=== PATIENT | female | born 1975 | race African-American/Black ===

== ENCOUNTER → 2023-10-02 15:53 | Outpatient (REF) | payer OTHER, SELFPAY | LOC: RAD 15:53 | PROVIDERS: ATTENDING PHYSICIAN Obstetrics & Gynecology; FAMILY PHYSICIAN Physician Assistant Medical | DX: N92.0 Excessive and frequent menstruation with regular cycle (principal); D25.0 Submucous leiomyoma of uterus | CPT/HCPCS: 76830; 76856 ==

== ENCOUNTER 2023-11-08 06:14 | Day surgery (SDC) | payer OTHER, SELFPAY ==
[2023-10-31 08:07] VITALS: BMI 22.7
[2023-10-31 09:41] LABS: % Basophils 1.7 % (0-2); % Eosinophils 2.7 % (0-6); % Immature Granulocytes 0.2 % (0-0.5); % Lymphocytes 32.4 % (20.5-51.1); % Monocytes 11.9 % (1.7-9.3); % Neutrophils 51.1 % (42.2-75.2); Absolute Basophils 0.1 10^3/uL (0-0.2); Absolute Eosinophils 0.1 10^3/uL (0-0.7); Absolute Lymphocytes 1.3 10^3/uL (1.2-3.4); Absolute Monocytes 0.5 10^3/uL (0.1-0.6); Absolute Neutrophils 2.1 10^3/uL (1.4-6.5); Hematocrit 39.2 % (37.0-47.0); Hemoglobin 12.4 g/dL (12.0-16.0); Mean Corp Hgb Conc. 31.6 g/dL (33.0-37.0); Mean Corpuscular Hgb 26.1 pg (27.0-31.0); Mean Corpuscular Volume 82.5 fL (81.0-99.0); Mean Platelet Volume 10.9 fL (7.4-10.4); Nucleated Red Blood Cells % 0 %; Platelet Count 287 10^3/uL (130-400); Red Blood Cell Count 4.75 10^6/uL (4.20-5.40); Red Cell Dist. Width 14.9 % (11.5-14.5)
[2023-10-31 10:00] LABS: Blood Urea Nitrogen 14 mg/dl (7-17); Carbon Dioxide 24 mmol/L (22-30); Chloride 105 mmol/L (98-107); Estimated Creatinine Clearance 93 ml/min; Glucose 67 mg/dl (70-99); Potassium 3.9 mmol/L (3.5-5.1); Sodium 140 mmol/L (135-145); eGFR > 60.00
[2023-10-31 10:04] LABS: Beta HCG Quantitative < 2.39 mIU/ml
[2023-11-08 07:54] VITALS: BMI 22.7
[2023-11-08 08:12] VITALS: BP 124/88
[2023-11-08] MEDS: NORMOSOL-R 1000 IV (08:25)
--- NOTE | 2023-11-08 08:25 | W.SUR.PREOP ---
Pre-Operative Surgical Note
-
I have examined this patient prior to the performance of the scheduled procedure.
The patient's condition is unchanged from the time of the current History and
Physical and the patient is able to undergo the scheduled procedure.
[2023-11-08 09:08] VITALS: BP 110/84
[2023-11-08 09:15] VITALS: BP 115/86
--- NOTE | 2023-11-08 09:28 | W.IMMPOSTOP ---
Surgical Immed Post Op Note
-
Primary Surgeon: Manju Alvarado DO
Assisting Surgeon: same
Pre-op Diagnosis: Menorrhagia,fibroids
Post-op Diagnosis: same
Procedure Performed: Hysteroscopy D&C
Anesthesia Type: MAC IV sedation Dr. Guerrero
Specimen / Cultures: 1. endocervical curettings 2. endometrial curettings
Estimated Blood Loss: 2ml
Complications: none
Operative Findings: Uterus enlarged, fibroid uterus. Endometrial cavity appears normal, bilateral tubal ostia seen. No evidence of polyp or tumor.
Fluid deficit: 45ml NSS
Counts correct times 2.
Stable to recovery.
[2023-11-08 09:30] VITALS: BP 120/87
[2023-11-08] MEDS: TYLENOL 650 MG PO (09:40)
[2023-11-08 09:45] VITALS: BP 121/90
[2023-11-08 10:00] VITALS: BP 123/91
== END 2023-11-08 10:20 | disposition home or self-care (01) ==
LOC: SDS 06:14
PROVIDERS: ATTENDING PHYSICIAN Obstetrics & Gynecology; FAMILY PHYSICIAN Physician Assistant Medical
DX: D25.9 Leiomyoma of uterus, unspecified (principal); N92.0 Excessive and frequent menstruation with regular cycle; N85.00 Endometrial hyperplasia, unspecified
CPT/HCPCS: 58558; 88305; 36415; 80048; 84702; 85025; 86850; 86900; 86901

== ENCOUNTER 2023-12-10 06:26 | Day surgery (SDC) | payer OTHER, SELFPAY ==
[2023-11-28 08:50] VITALS: BMI 23.1
[2023-11-28 10:17] LABS: % Basophils 1.1 % (0-2); % Eosinophils 2.9 % (0-6); % Immature Granulocytes 0.3 % (0-0.5); % Lymphocytes 37.9 % (20.5-51.1); % Monocytes 9.9 % (1.7-9.3); % Neutrophils 47.9 % (42.2-75.2); Absolute Eosinophils 0.1 10^3/uL (0-0.7); Absolute Lymphocytes 1.4 10^3/uL (1.2-3.4); Absolute Monocytes 0.4 10^3/uL (0.1-0.6); Absolute Neutrophils 1.8 10^3/uL (1.4-6.5); Hematocrit 37.1 % (37.0-47.0); Mean Corp Hgb Conc. 32.3 g/dL (33.0-37.0); Mean Corpuscular Hgb 25.7 pg (27.0-31.0); Mean Corpuscular Volume 79.4 fL (81.0-99.0); Mean Platelet Volume 10.7 fL (7.4-10.4); Nucleated Red Blood Cells % 0 %; Platelet Count 327 10^3/uL (130-400); Red Blood Cell Count 4.67 10^6/uL (4.20-5.40); Red Cell Dist. Width 16.1 % (11.5-14.5); White Blood Cell Count 3.8 10^3/uL (4.8-10.8)
[2023-11-28 10:43] LABS: Blood Urea Nitrogen 8 mg/dl (7-17); Calcium 9.6 mg/dl (8.4-10.2); Carbon Dioxide 25 mmol/L (22-30); Chloride 106 mmol/L (98-107); Estimated Creatinine Clearance 102 ml/min; Glucose 73 mg/dl (70-99); Potassium 4.2 mmol/L (3.5-5.1); Sodium 139 mmol/L (135-145); eGFR > 60.00
[2023-12-10] VITALS (12 sets, daily range): BP systolic 127–150; BP diastolic 89–112; BMI 23.1
[2023-12-10] MEDS: HEPARIN 5000 UNITS SC (12:52)
[2023-12-10] MEDS: NORMOSOL-R 1000 IV ×2 (12:52→19:00)
[2023-12-10 13:23] LABS: HCG, Serum Qualitative Screen Negative
--- NOTE | 2023-12-10 16:49 | W.SUR.PREOP ---
Pre-Operative Surgical Note
-
I have examined this patient prior to the performance of the scheduled procedure.
The patient's condition is unchanged from the time of the current History and
Physical and the patient is able to undergo the scheduled procedure.
Case delayed due to preceding cases today. Pt declined rescheduling.
No changes to H&P.
Again reviewed plan to complete surgery robotic laparoscopically but pt aware of possible risk
for minilap or laparotomy due to uterine size.
--- NOTE | 2023-12-10 19:00 | W.IMMPOSTOP ---
Surgical Immed Post Op Note
-
Primary Surgeon: Manju Alvarado DO
Flat Knitter Helper: WILMER Cruz
Pre-op Diagnosis: Uterine leiomyomata, pelvic pain, menorrhagia
Post-op Diagnosis: same; abdominal omental adhesions
Procedure Performed: Robotic total laparoscopic hysterectomy bilateral salpingectomy, lysis adhesions
Anesthesia Type: general ET Dr. Perrin
Specimen / Cultures: uterus, cervix, fallopian tubes, left paratubal cysts
Estimated Blood Loss: 10ml
Urine output: 200ml clear yellow
Complications: none
Operative Findings: Enlarged uterus approx 14 cm length, with 6cm left anterior intramural fibroid. Normal appearing tubes and ovaries
bilaterally. Left paratubal cysts. Normal appearing appendix. Adhesions of omentum and filmy adhesions along anterior abdominal wall extending from just below umbilicus to level of
pelvic brim.
Counts correct times 2.
Stable to recovery.
[2023-12-10] MEDS: DEMEROL 12.5 MG IV ×2 (19:17→19:30)
[2023-12-10] MEDS: TORADOL 15 MG IV (19:43)
[2023-12-10] MEDS: DILAUDID 0.5 MG IV (19:50)
[2023-12-10 20:02] LABS: Hematocrit 33.1 % (37.0-47.0); Hemoglobin 10.9 g/dL (12.0-16.0)
[2023-12-10 20:15] LABS: Blood Urea Nitrogen 8 mg/dl (7-17); Calcium 8.6 mg/dl (8.4-10.2); Carbon Dioxide 22 mmol/L (22-30); Chloride 104 mmol/L (98-107); Estimated Creatinine Clearance 102 ml/min; Glucose 110 mg/dl (70-99); Potassium 3.9 mmol/L (3.5-5.1); Sodium 136 mmol/L (135-145); eGFR > 60.00
--- NOTE | 2023-12-10 20:30 | PTCARENOTE ---
Pt arrived to 2S via bed at 2029. Pt AAOX3. 4 lap sites OA with glue. Pt complains of 8/10 pain (see mar). IVF infusing at 125 ml/hr. full head to toe assessment complete. Pt oriented to room and call sam. bed in lowest position and locked.
[2023-12-10] MEDS: MORPHINE SULFATE 2 MG IV (21:33)
[2023-12-10] MEDS: ZOFRAN 4 MG IV (21:40)
[2023-12-11] MEDS: SEROQUEL 100 MG PO (00:08)
[2023-12-11] MEDS: COLACE 100 MG PO ×2 (00:08→09:19)
[2023-12-11] MEDS: MYLICON 80 MG PO ×2 (00:09→09:24)
[2023-12-11] MEDS: ROXICODONE 5 MG PO (00:09)
[2023-12-11] MEDS: TORADOL 15 MG IV ×3 (01:14→13:06)
[2023-12-11 03:06] VITALS: BP 132/92
[2023-12-11] MEDS: NORMOSOL-R 1000 IV (04:13)
[2023-12-11] MEDS: MORPHINE SULFATE 2 MG IV (04:23)
[2023-12-11] MEDS: ZOFRAN 4 MG IV (04:23)
--- NOTE | 2023-12-11 07:06 | W.PN.OBG.DWH ---
Today's Communication / Plan
-
Regular diet this am
OOB-encourage
DC home today
Assessment/Plan
-
A/P:POD#1 s/p RA TLH b/l salpingectomy
Feeling well
Change to PO pain meds.
Reg diet this am
Anticipate dc today
OOB
Reviewed dc instructions, restrictions and follow up
Subjective Data
-
POD#1 Pain mgmt imporved. Had some nausea relieved with meds. Not much appetite yet.
voiding without difficulty-emptied well on 2nd void.
feels able to go home today
Denies bleeding
Objective Data
-
Vital Signs
Temp Pulse Resp BP Pulse Ox
98.0 F 86 18 132/92 98
12/11/23 03:06 12/11/23 03:06 12/11/23 03:06 12/11/23 03:06 12/11/23 04:46
VSS afeb
cor:reg rate
Pulm: clear
Abd: soft +bs ND inc cdi
ext: no calf pain
No vag bleeding
--- NOTE | 2023-12-11 07:10 | W.DS.TRANS ---
DC Summary - Divemaster
-
Discharge Instructions:
Sleep Apnea Risk Low
Discharge Diagnosis/Procedures fibroid uterus; pelvic pain, menorrhagia
Diet Regular
Activity No strenuous activity
Driving Restrictions No driving for 1 week
Bathing Restrictions OK to Shower
Instructions:
Stand-Alone Forms:
Changes to Home Medications: No
Discharge Medications:
DC Medications w/original date entered in [facility]
quetiapine 100 mg tablet (Seroquel) 100 mg PO QPM 01/13/23
lamotrigine 150 mg tablet (Lamictal) 225 mg PO DAILY 11/01/23
multivitamin 1 tab PO DAILY 11/01/23
hydroxyzine HCl 25 mg tablet 25 mg PO DAILY 11/08/23
Home Medication Changes
Pending Results: Yes
Additional Pending Results:
surgical pathology
Total time spent discharging patient (in min): 30
[2023-12-11 07:34] LABS: % Basophils 0.1 % (0-2); % Immature Granulocytes 0.3 % (0-0.5); % Lymphocytes 9.9 % (20.5-51.1); % Monocytes 6.4 % (1.7-9.3); % Neutrophils 83.3 % (42.2-75.2); Absolute Lymphocytes 0.9 10^3/uL (1.2-3.4); Absolute Monocytes 0.6 10^3/uL (0.1-0.6); Absolute Neutrophils 7.7 10^3/uL (1.4-6.5); Hematocrit 34.7 % (37.0-47.0); Hemoglobin 11.5 g/dL (12.0-16.0); Mean Corp Hgb Conc. 33.1 g/dL (33.0-37.0); Mean Corpuscular Hgb 26.1 pg (27.0-31.0); Mean Corpuscular Volume 78.9 fL (81.0-99.0); Mean Platelet Volume 10.2 fL (7.4-10.4); Nucleated Red Blood Cells % 0 %; Platelet Count 283 10^3/uL (130-400); Red Cell Dist. Width 15.8 % (11.5-14.5); White Blood Cell Count 9.2 10^3/uL (4.8-10.8)
[2023-12-11 07:40] VITALS: BP 129/93
[2023-12-11 08:46] LABS: Blood Urea Nitrogen 6 mg/dl (7-17); Carbon Dioxide 21 mmol/L (22-30); Chloride 104 mmol/L (98-107); Estimated Creatinine Clearance 115 ml/min; Potassium 4.5 mmol/L (3.5-5.1); Sodium 135 mmol/L (135-145)
[2023-12-11] MEDS: LAMICTAL 225 MG PO (09:19)
--- NOTE | 2023-12-11 10:21 | PTCARENOTE ---
Patient c/o gas pain. Mylicon given.
[2023-12-11 11:35] VITALS: BP 128/86
[2023-12-11] MEDS: NORMOSOL-R IV (13:06)
--- NOTE | 2023-12-11 15:20 | CM ---
met with patient at [facility].patient lives with her in house with 3 robb,her bed and bath is on the second level.she is totally I.she has never had a vn or been to ip rehab.her pcp is dr bradford and she uses [facility].pt is kayley barth
total hysterectomy/salpingectomy.she is stable for dc home with A .
== END 2023-12-11 13:46 | disposition home or self-care (01) ==
LOC: SDS 06:26
PROVIDERS: ATTENDING PHYSICIAN Obstetrics & Gynecology; FAMILY PHYSICIAN Physician Assistant Medical
DX: D25.9 Leiomyoma of uterus, unspecified (principal); N80.03 Adenomyosis of the uterus; N83.8 Other noninflammatory disorders of ovary, fallopian tube and broad ligament; R10.2 Pelvic and perineal pain; N92.0 Excessive and frequent menstruation with regular cycle
CPT/HCPCS: 58571; 88307; 36415; 80048; 80051; 82565; 84520; 84703; 85014; 85018; 85025; 86850; 86900; 86901

== ENCOUNTER → 2024-12-28 10:00 | Outpatient (REF) | payer OTHER, SELFPAY | LOC: WDC 10:00 | PROVIDERS: ATTENDING PHYSICIAN Physician Assistant Medical | DX: N63.10 Unspecified lump in the right breast, unspecified quadrant (principal); N63.20 Unspecified lump in the left breast, unspecified quadrant; N63.22 Unspecified lump in the left breast, upper inner quadrant; N63.14 Unspecified lump in the right breast, lower inner quadrant | CPT/HCPCS: 76642; 77062; 77066 ==